=== PATIENT | male | born 1975 | race African-American/Black ===

== ENCOUNTER 2023-08-25 00:24 | Emergency (ER) | payer BC ==
[2023-08-25 00:34] VITALS: BMI 27.8
[2023-08-25] MEDS ORDERED: LIDOCAINE VISCOUS 2% ORAL/TOP 15 ML UNIT-DOSE CUP ONE (02:50)
[2023-08-25] MEDS ORDERED: LIDOCAINE 1%/EPI 1:100000 (50 ML MULTI DOSE VIAL) ONE (02:51)
[2023-08-25] MEDS: LIDOCAINE HCL 2% JELLY (30 ML/TUBE) TP ONE (02:56)
[2023-08-25 04:35] VITALS: BP 128/78; PULSE 80; RESP 20; TEMP 98
== END 2023-08-25 04:34 | disposition home or self-care (01) ==
LOC: JER 00:24
DX: K64.5 Perianal venous thrombosis (principal)
CPT/HCPCS: 99283-25